=== PATIENT | male | born 1965 | race Caucasian/White ===

== ENCOUNTER 2022-03-24 19:34 | Emergency (ER) | payer MEDICAID ==
[~2022-03-24] VITALS: Ht 172.7 cm; Wt 85.0 kg
[2022-03-24 19:40] VITALS: BP 134/86
== END 2022-03-24 20:10 | disposition left against medical advice (07) ==
LOC: ER 19:34
DX: R07.89 Other chest pain (principal); K76.9 Liver disease, unspecified; F17.210 Nicotine dependence, cigarettes, uncomplicated; F12.10 Cannabis abuse, uncomplicated
CPT/HCPCS: 99283

== ENCOUNTER 2024-03-30 13:47 | Emergency (ER) | payer MEDICAID ==
[~2024-03-30] VITALS: Ht 172.7 cm; Wt 72.0 kg
[2024-03-30] MEDS ORDERED: SODIUM CHLORIDE 0.9% 1,000 ML IV ONE (14:00)
[2024-03-30 14:01] VITALS: BP 114/71; PULSE 102; RESP 18; TEMP 98; O2SAT 100
[2024-03-31] MEDS ORDERED: ACET-2708 MT (04:06)
== END 2024-03-30 17:26 | disposition home or self-care (01) ==
LOC: ER 13:47
DX: F10.129 Alcohol abuse with intoxication, unspecified (principal); F12.90 Cannabis use, unspecified, uncomplicated; I10 Essential (primary) hypertension; I25.2 Old myocardial infarction; Y90.9 Presence of alcohol in blood, level not specified
CPT/HCPCS: 99284; 70450; J7030

== ENCOUNTER 2024-03-30 21:36 | Emergency (ER) | payer MEDICAID ==
[~2024-03-30] VITALS: Ht 167.6 cm; Wt 70.0 kg
[2024-03-30 21:39] VITALS: BP 124/78; PULSE 79; RESP 14; TEMP 98.5; O2SAT 98
[2024-03-31] MEDS ORDERED: ACET-2708 MT (04:06)
== END 2024-03-31 00:24 | disposition left against medical advice (07) ==
LOC: ER 21:36
DX: R53.1 Weakness (principal); F12.90 Cannabis use, unspecified, uncomplicated; F10.129 Alcohol abuse with intoxication, unspecified; I10 Essential (primary) hypertension; Y90.9 Presence of alcohol in blood, level not specified
CPT/HCPCS: 99283

== ENCOUNTER 2024-03-31 02:08 | Emergency (ER) | payer MEDICAID ==
[~2024-03-31] VITALS: Ht 175.3 cm; Wt 80.0 kg
[2024-03-31 02:19] VITALS: BP 118/77; PULSE 77; RESP 16; TEMP 98; O2SAT 100
[2024-03-31] MEDS ORDERED: ACET-2708 MT (04:06)
== END 2024-03-31 04:39 | disposition left against medical advice (07) ==
LOC: ER 02:08
DX: J06.9 Acute upper respiratory infection, unspecified (principal); I25.2 Old myocardial infarction; I10 Essential (primary) hypertension; F12.10 Cannabis abuse, uncomplicated
CPT/HCPCS: 71045; 99283

== ENCOUNTER 2024-04-08 01:13 | Emergency (ER) | payer MEDICAID ==
[~2024-04-08] VITALS: Ht 172.7 cm; Wt 82.0 kg
[~2024-04-08 01:13] MED LIST: ACET-2708 MT
[2024-04-08 01:16] VITALS: BP 120/81; PULSE 108; RESP 16; TEMP 97.2; O2SAT 98
== END 2024-04-08 02:00 | disposition left against medical advice (07) ==
LOC: ER 01:13
DX: Z53.21 Procedure and treatment not carried out due to patient leaving prior to being seen by health care provider (principal)

== ENCOUNTER 2024-04-10 08:11 | Emergency (ER) | payer MEDICAID ==
[~2024-04-10] VITALS: Ht 175.3 cm; Wt 80.0 kg
[2024-04-10 08:22] VITALS: BP 127/76; PULSE 99; RESP 16; TEMP 98.8; O2SAT 100
== END 2024-04-10 12:04 | disposition left against medical advice (07) ==
LOC: ER 08:11
DX: F10.239 Alcohol dependence with withdrawal, unspecified (principal); Z53.21 Procedure and treatment not carried out due to patient leaving prior to being seen by health care provider

== ENCOUNTER 2024-05-30 19:17 | Emergency (ER) | payer MEDICAID ==
[2024-05-30 19:19] VITALS: PULSE 120; O2SAT 99
== END 2024-05-30 20:06 | disposition left against medical advice (07) ==
LOC: ER 19:17
DX: R07.89 Other chest pain (principal); R05.9 Cough, unspecified; R06.02 Shortness of breath; R11.10 Vomiting, unspecified; Z53.21 Procedure and treatment not carried out due to patient leaving prior to being seen by health care provider

== ENCOUNTER 2024-06-11 09:28 | Emergency (ER) | payer MEDICAID ==
[~2024-06-11] VITALS: Ht 175.3 cm; Wt 79.0 kg
[2024-06-11 09:31] VITALS: BP 134/58; PULSE 86; RESP 14; TEMP 36.7; O2SAT 99
[2024-06-11 11:41] LABS: BASOPHILS % 0.5 % (0.0-2.0); EOSINOPHILS % 3.7 % (0.0-5.0); HEMATOCRIT. 42.5 % (42.0-52.0); HEMOGLOBIN. 14.1 g/dL (14.0-18.0); LYMPHOCYTES % 20.1 % (20.0-50.0); MEAN CORPUSCULAR HEMOGLOBIN 33.2 pg (28.0-32.0); MEAN CORPUSCULAR HGB CONC 33.3 g/dL (31.0-37.0); MEAN CORPUSCULAR VOLUME 99.8 fL (80.0-94.0); MONOCYTES % 8.3 % (2.0-8.0); NEUTROPHILS % 67.4 % (40.0-76.0); RED BLOOD CELL COUNT 4.26 mill/uL (4.7-6.1); RED CELL DISTRIBUTION WIDTH 15.5 % (11.6-14.6); WHITE BLOOD COUNT 6.6 x1000/uL (4.5-11.0)
[2024-06-11 12:04] LABS: DIFFERENTIAL COMMENT 1
[2024-06-11 12:33] LABS: CHLORIDE 108 mEq/L (98-107); POTASSIUM 4.5 mEq/L (3.5-5.1); SODIUM 144 mEq/L (136-145)
[2024-06-11 12:34] LABS: CARBON DIOXIDE 22 mEq/L (21-32)
[2024-06-11 12:35] LABS: CALCIUM 8.5 mg/dL (8.7-10.4)
[2024-06-11 12:39] LABS: CREATININE 0.7 mg/dL (0.6-1.3); GLUCOSE 88 mg/dL (70-105); UREA NITROGEN BLOOD 10 mg/dL (9-23)
[2024-06-11 12:40] LABS: TROPONIN I HIGH SENSITIVITY 6 ng/L (3.0-53)
[2024-06-11 14:47] LABS: PLATELET 174 x1000/uL (130-400)
== END 2024-06-12 03:01 | disposition left against medical advice (07) ==
LOC: ER 09:28
DX: R06.02 Shortness of breath (principal); I10 Essential (primary) hypertension; I25.2 Old myocardial infarction; Z79.899 Other long term (current) drug therapy
CPT/HCPCS: 36415; 71045; 80048; 83880; 84484; 85025; 93005; 99285